=== PATIENT | female | born 1950 | race Caucasian/White ===

== ENCOUNTER 2024-07-01 22:00 | Inpatient (IN) | payer OTHER ==
[2024-07-01 22:24] VITALS: BMI 21.4
[2024-07-01] MEDS ORDERED: IBUPROFEN 400 MG TABLET (FP) PO PRN (23:28)
[2024-07-01] MEDS ORDERED: BISMUTH SUBSALICYLATE 524 MG/30 ML PO PRN (23:28)
[2024-07-01] MEDS ORDERED: ACETAMINOPHEN 325 MG TABLET (FP) PO PRN (23:28)
[2024-07-01] MEDS ORDERED: LOPERAMIDE HCL 2 MG CAPSULE PO PRN (23:28)
[2024-07-01] MEDS ORDERED: ONDANSETRON *ODT* 4 MG TABLET SL PRN (23:28)
[2024-07-01] MEDS ORDERED: NALOXONE (NARCAN) HCL 4 MG/0.1 ML SPRAY NS PRN (23:28)
[2024-07-01] MEDS ORDERED: BENZONATATE 200 MG CAPSULE PO PRN (23:28)
[2024-07-01] MEDS ORDERED: guaiFENesin 600 MG TABLET.ER (FP) PO PRN (23:28)
[2024-07-01] MEDS: LORazepam 1 MG TABLET PO ONE (23:45)
[2024-07-02] MEDS: LORazepam 2 MG TABLET PO SCH (00:05)
[2024-07-02] MEDS ORDERED: LORazepam 1 MG TABLET ONE ×2 (05:25→10:00)
[2024-07-02] MEDS: LORazepam 1 MG TABLET PO SCH (05:32)
[2024-07-02] MEDS: MAG HYDROX/AL HYDROX/SIMETH 30 ML UNIT-DOSE CUP PO PRN (09:47)
[2024-07-02] MEDS ORDERED: PRENATAL VITAMINS W/ FOLIC ACID TABLET (FP) PO ONE (10:00)
[2024-07-02] MEDS: PRENATAL VITAMINS W/ FOLIC ACID TABLET (FP) PO SCH (10:01)
[2024-07-02] MEDS: MAGNESIUM HYDROX 2400MG/30ML ORAL SUSPENSION 30 ML CUP PO PRN (13:45)
[2024-07-02] MEDS: LORazepam 1 MG TABLET PO PRN (14:05)
[2024-07-02] MEDS: IBUPROFEN 600 MG TABLET (FP) PO PRN (17:08)
[2024-07-02] MEDS: POLYETHYLENE GLYCOL (HEALTHYLAX) 3350 17 GM PACKET PO PRN (17:11)
[2024-07-02] MEDS: THIAMINE 100 MG TABLET PO SCH (22:23)
[2024-07-02] MEDS: MELATONIN 5 MG TABLETS PO SCH (22:23)
[2024-07-02] MEDS: MIRTAZAPINE 15 MG TABLET (FP) PO SCH (22:23)
[2024-07-03] MEDS: LORazepam 1 MG TABLET PO SCH (05:45)
[2024-07-03] MEDS: ALBUTEROL SO4 HFA INHALER IH PRN (14:30)
[2024-07-03] MEDS: amLODIPine BESYLATE 5 MG TABLET (FP) PO ONE (19:55)
[2024-07-04] MEDS ORDERED: LORazepam 0.5 MG TABLET PO PRN
[2024-07-04] MEDS: LORazepam 0.5 MG TABLET PO SCH (05:34)
[2024-07-04] MEDS: amLODIPine BESYLATE 10 MG TABLET (FP) PO SCH (16:15)
[2024-07-04] MEDS: NALTREXONE HCL 50 MG TABLET PO SCH (16:15)
[2024-07-04] MEDS: LISINOPRIL 10 MG TABLET PO SCH (16:15)
[2024-07-05] MEDS: LORazepam 0.5 MG TABLET PO ONE (05:50)
[2024-07-05 15:24] LABS: POTASSIUM 4.6 mmol/L (3.5-5.1)
[2024-07-05 15:28] LABS: HEMATOCRIT 37.2 % (32.4-45.2); HEMOGLOBIN 12.5 GM/dL (10.7-15.3); MCH 34.3 pg (25.7-33.7); MCHC 33.5 g/dl (32.0-36.0); MEAN CELL VOLUME 102.5 fl (80-96); MEAN PLT VOLUME 8.3 fl (7.5-11.1); PLATELET COUNT 189 10^3/uL (134-434); RBC 3.63 M/mm3 (3.60-5.2); RDW 16.2 % (11.6-15.6); WHITE BLOOD COUNT 3.8 K/mm3 (4.0-10.0)
[2024-07-05 15:29] LABS: CALCIUM 8.9 mg/dL (8.5-10.1)
[2024-07-05 15:30] LABS: ALBUMIN 3.8 g/dl (3.4-5.0); BLOOD UREA NITROGEN 13.3 mg/dL (7-18)
[2024-07-05 15:33] LABS: BILIRUBIN,TOTAL 0.4 mg/dL (0.2-1); CREATININE 0.6 mg/dL (0.55-1.3)
[2024-07-05 15:34] LABS: TOT PROT 6.6 g/dl (6.4-8.2)
[2024-07-06 09:02] VITALS: BP 115/75; PULSE 89; RESP 18; TEMP 98.7
[2024-07-06] MEDS: LACTULOSE 20 GM/30 ML UDC (FOR ORAL USE ONLY) PO SCH (10:04)
== END 2024-07-06 10:15 | disposition other institution (70) | DRG 897 ==
LOC: YASAS 22:00 → Y6N 07-02 09:50
PROVIDERS: ADMIT Neuromusculoskeletal Medicine & OMM; ATTEND Allergy & Immunology
PROC: HZ2ZZZZ Detoxification Services for Substance Abuse Treatment (ICD-10-PCS; principal; 2024-07-02)
DX: F10.230 Alcohol dependence with withdrawal, uncomplicated (principal); F10.282 Alcohol dependence with alcohol-induced sleep disorder; F10.280 Alcohol dependence with alcohol-induced anxiety disorder; F41.9 Anxiety disorder, unspecified; F32.A Depression, unspecified; I10 Essential (primary) hypertension; J45.20 Mild intermittent asthma, uncomplicated; Z85.3 Personal history of malignant neoplasm of breast; Z88.2 Allergy status to sulfonamides
CPT/HCPCS: 36415; 80053; 80305; 80307; 81025; 82140; 85027; 86780; 93005; 93010